=== PATIENT | female | born 1965 | race Caucasian/White ===

== ENCOUNTER 2020-10-28 18:51 | Outpatient (REF) | payer BC, SELFPAY | END 2020-10-28 18:52 | disposition home or self-care (01) | LOC: HO.LNP 18:51 | PROVIDERS: Visit Provider Family Medicine | DX: Z20.822 Contact with and (suspected) exposure to COVID-19 (principal); B34.9 Viral infection, unspecified | CPT/HCPCS: U0003; U0005 ==

== ENCOUNTER 2025-06-30 10:25 | Outpatient (AMB) | payer BC, SELFPAY ==
--- NOTE | 2025-06-30 11:15 | MHC.PC.OV ---
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 Pt c/o chronic neck pain and stiffness for one year and bilateral upper extremities weakness and tingling sensation in both hands. Patient reports stiffness in both hands in the morning lasting for about 10 minutes. She denies joint swelling erythema or warmth. Pt completed course of physical therapy for chronic neck pain a few months ago without significant improvement. She had negative x-ray of C-spine with her previous PCP. Pt reports increased anxiety and stress due to concern that her daughter did not vaccinate her grandson and patient has not been able to spend more time with her grandson. [facility] Medical History (Updated 06/30/25 @ 15:41 by Aletha Lombardi MD) Normal pelvic exam Hx of screening mammography Thyroid nodule Annual physical exam Sinan's disease Neck pain Positive NIKOLAY (antinuclear antibody) Surgical History (Updated 06/30/25 @ 12:13 by Aletha Lombardi MD) Hx of colonoscopy Hx of section History of hernia surgery Family History (Updated 06/30/25 @ 11:42 by Philly Grover [facility]) Father Heart problem Mother Thrombosis Social History Household Members Other:: , 3 children, grandson in [place] Housing: House Patient Tobacco Use Status: Never used Tobacco e-Cigarette/Vaping Use: Never Used service: No Current occupational status: employed Cognitive needs: No Hearing needs: No Vision needs: Yes Questionnaire PHQ-9 Over the last 2 weeks, how often have you been bothered by any of the following problems? 1. Little interest or pleasure in doing things: not at all 2. Feeling down, depressed, or hopeless: not at all 3. Trouble falling or staying asleep, or sleeping too much: not at all 4. Feeling tired or having little energy: not at all 5. Poor appetite or overeating: not at all 6. Feeling bad about yourself - or that you are a failure or have let yourself or your family down: not at all 7. Trouble concentrating on things, such as reading the newspaper or watching television: not at all 8. Moving or speaking so slowly that other people could have noticed. Or the opposite - being so fidgety or restless that you have been moving around a lot more than usual: not at all 9. Thoughts that you would be better off or of hurting yourself in some way: not at all Total score: 0 Depression Screening Interpretation: Negative Depression Screening Done: Yes 96602 - PHQ-9 Billing: Yes Source: Developed by Drs. Tom Engle, Sindhu Tobin, Brady Villanueva and colleagues, with an educational roby from [employer]. Thrive Questionnaire Date Thrive assessed: 06/30/25 I am a: Patient What is your living situation today?: I have a steady place to live Within the past 12 months, did the food you bought not last and you didn't have the money to get more?: I choose not to answer this question Within the past 12 months, did you worry whether your food would run out before you got money to buy more?: Never true Do you have trouble paying for medicines?: No Do you have trouble getting transportation to medical appointments?: No Do you have trouble paying your heating and electricity bill?: No Do you have trouble taking care of your child, family member or friend?: No Do you have trouble with day-to-day activities such as bathing, preparing meals, shopping, managing finances, etc.?: No Are you currently unemployed and looking for a job?: No Are you interested in more education?: No Please select the resources that you would like help with: None Currently or been in a relationship where the following occur: I choose not to answer THRIVE Score: 0 AUDIT C Alcohol Use Questionnaire (AUDIT-C) 1. How often do you have a drink containing alcohol?: 2-4 times a month 2. How many drinks containing alcohol do you have on a typical day when you are drinking?: 1 or 2 3. How often do you have six or more drinks on one occasion?: Never Total Score: 2 TANJA-7 AMB Questionnaire TANJA-7 Date TANJA - 7 assessed: 06/30/25 Feeling nervous, anxious, or on edge: 1 = Several days Not being able to stop or control worryin = Several days Worrying too much about different things: 1 = Several days Trouble relaxin = Several days Being so restless that it is hard to sit still: 1 = Several days Becoming easily annoyed or irritable: 1 = Several days Feeling afraid as if something awful might happen: 0 = Not at all Total TANJA-7 score (0-4 normal; 5-9 mild; 10-14 moderate; 15-21 severe): 6 Source: Developed by Drs. Tom Engle, Sindhu Tobin, Brady Villanueva and colleagues, with an educational roby from [employer]. TANJA-7 Assessment Billing TANJA-7 Assessment Tool: TANJA-7 Assessment 40784 Review of Systems Const All systems reviewed & are unremarkable except as noted in HPI and below Eyes Reports no additional complaints ENT Reports no additional complaints Card Reports no additional complaints Resp Reports no additional complaints GI Reports no additional complaints Reports no additional complaints Physical exam (Primary Care) Vital Signs: Last Vital Signs Temp 98.2 F 06/30/25 11:33 Pulse 80 06/30/25 11:33 Resp 17 06/30/25 11:33 BP 124/78 06/30/25 11:33 Pulse Ox 95 06/30/25 11:33 Oxygen Delivery Method Room Air 06/30/25 11:33 BMI result Body Mass Index 25.6 Tobacco/Smoking Status: Tobacco use Status Tobacco use date assessed 06/30/25 06/30/25 11:18 Patient Tobacco Use Status Never used Tobacco 06/30/25 12:09 e-Cigarette/Vaping Use Never Used 06/30/25 12:09 PHQ-9: PHQ-9 Score PHQ-9: Total score 0 06/30/25 12:03 Depression Screening Interpretation: Negative Thrive Assessment: Date of Thrive Assessment Date Thrive assessed 06/30/25 06/30/25 11:42 Currently or been in a relationship where the following occur: I choose not to answer Const General: no acute distress HENMT Head: Yes normal to inspection Ears: TM's normal bilaterally Mouth: Normal oral and palatal mucosa present Eyes General: appearance normal, both eyes and all related structures Neck Neck: Yes no lymphadenopathy and Yes supple Resp Effort & Inspection: normal respiratory effort Auscultation: clear to auscultation bilaterally Cardio Rhythm: regular rhythm Heart sounds: S1 normal heart sound present and S2 normal heart sound present GI Inspection: Yes normal to inspection Palpation (GI): Soft to palpation Percussion: Yes normal to percussion Auscultation: normal bowel sounds Back/Spine/Pelvis Other: There is paraspinal tenderness muscle spasm in lower cervical region, deep tendon reflexes are 3+ bilaterally upper and lower extremities. Strength is 4 -5/5 proximal and distal upper extremities, Coding Level of Care Code New Pt Level 4 (79196) Diagnoses Cervical radiculopathy M54.12 Carpal tunnel syndrome G56.00 Thyroid nodule E04.1 Positive NIKOLAY (antinuclear antibody) R76.89 Additional Codes TANJA-7 Assessment Billing - TANJA-7 Assessment Tool: TANJA-7 Assessment 62775 ([id number]) PHQ-9 - 48585 - PHQ-9 Billing: Yes ([id number]) Assessment & Plan Assessment & Plan (1) Cervical radiculopathy: Comment: Completed PT 01/2025, C spine XR nl Code(s): M54.12 - Radiculopathy, cervical region Category: Medical Plan: For cervical radiculopathy progressing despite physical therapy C-spine MRI will be obtained to evaluate for disc herniation (2) Carpal tunnel syndrome: Code(s): G56.00 - Carpal tunnel syndrome, unspecified upper limb Category: Medical Plan: Obtain nerve conduction started to evaluate for bilateral carpal tunnel syndrome (3) Thyroid nodule: Comment: US thyroid: 0.9 cm x 0.6 cmx 0.8 cm right lower pole, repeat in 1 ,2,3, 5 yrs Code(s): E04.1 - Nontoxic single thyroid nodule Category: Medical Plan: Follow-up ultrasound next year (4) Positive NIKOLAY (antinuclear antibody): Comment: no active autoimmune disease f/u rheumatology Code(s): R76.89 - Other specified abnormal immunological findings in serum Category: Medical Plan: Follow-up with rheumatology obtain records Orders: Orders NE electromyogram (EMG) Today G56.00 - Carpal tunnel syndrome, unspecified upper limb, M54.12 - Radiculopathy, cervical region MR cervical spine wo con Today M54.12 - Radiculopathy, cervical region NE nerve conduction velocity Today M54.12 - Radiculopathy, cervical region
[2025-06-30 11:33] VITALS: BP 124/78; PULSE 80; RESP 17; TEMP 36.8; O2SAT 95; BMI 25.6
== END 2025-06-30 15:03 | disposition home or self-care (01) ==
LOC: HO.HMCC 10:25
PROVIDERS: PCP Internal Medicine; Visit Provider Internal Medicine
DX: M54.12 Radiculopathy, cervical region (principal); G56.00 Carpal tunnel syndrome, unspecified upper limb; E04.1 Nontoxic single thyroid nodule; R76.89 Other specified abnormal immunological findings in serum

== ENCOUNTER → 2025-06-30 10:25 | Outpatient (BNVA) | payer BC, SELFPAY | PROVIDERS: PCP Internal Medicine; Visit Provider Internal Medicine | DX: M54.12 Radiculopathy, cervical region (principal); G56.03 Carpal tunnel syndrome, bilateral upper limbs; E04.1 Nontoxic single thyroid nodule; R76.89 Other specified abnormal immunological findings in serum | CPT/HCPCS: 96127 ==